=== PATIENT | female | born 1955 | race Caucasian/White ===

== ENCOUNTER 2020-10-12 16:47 | Emergency (ER) | payer MEDICAID, SELFPAY ==
[~2020-10-12] VITALS: Ht 170.2 cm; Wt 90.7 kg
[2020-10-12 17:53] VITALS: BP_SYST 157
[2020-10-12] MEDS ORDERED: NS 1000 ML IV.SOLN IV ONE (18:00)
[2020-10-12] MEDS ORDERED: cefTRIAXone 1 GM IVPB PREMIX 50 ML IV ONE (18:00)
[2020-10-12 19:09] LABS: HEMOGLOBIN 14.7 g/dL (12.0-16.0); RED CELL DISTRIBUTION WIDTH 13.8 % (9.0-15.0)
[2020-10-12 19:14] LABS: BASOPHILS % (AUTO) 0.2 % (0.0-2.0); HEMATOCRIT 43.6 % (36-48); LYMPHOCYTES # (AUTO) 1.1 K/uL (1.0-5.5); LYMPHOCYTES % (AUTO) 24.4 % (20.5-51.5); MEAN CORPUSCULAR HEMOGLOBIN 31 pg (27-31); MEAN CORPUSCULAR HGB CONC 34 % (32-36); MEAN CORPUSCULAR VOLUME 92 fL (79.0-98.0); MONOCYTES # (AUTO) 0.3 K/uL (0.0-1.0); MONOCYTES % (AUTO) 7.8 % (1.7-9.3); NEUTROPHILS # (AUTO) 2.9 K/uL (1.8-7.7); NEUTROPHILS % (AUTO) 67.6 % (40.0-70.0); PLATELET COUNT (AUTO) 145 K/uL (130-430); RED BLOOD CELL COUNT(AUTO) 4.72 MIL/uL (4.2-6.2); WHITE BLOOD COUNT (AUTO) 4.3 K/uL (4.8-10.8)
[2020-10-12 19:19] LABS: CALCIUM 9.8 mg/dL (8.4-11.0); CREATININE 0.84 mg/dL (0.55-1.30); POTASSIUM 3.8 mmol/L (3.5-5.1)
[2020-10-12 19:25] LABS: ALBUMIN 3.7 g/dL (3.4-4.8); TOTAL BILIRUBIN 0.4 mg/dL (0.0-1.0)
--- NOTE | 2020-10-12 19:41 | NUR ---
Patient's family called for update patient status.
--- NOTE | 2020-10-12 19:43 | NUR ---
Received report from Lab - COVID + -, Dr. Limon notified.
[2020-10-12] MEDS ORDERED: AZITHROMYCIN 250 MG TABLET PO ONE (19:45)
--- NOTE | 2020-10-12 19:50 | NUR ---
Patient BIB by BLS/EMS. C/O headache x today. Per reported, patient had headache and exposed someone who Covid positive. A/O,X4, denies shortness of breath, headache.
--- NOTE | 2020-10-12 19:51 | NUR ---
Given PO medication as order.
[2020-10-12 19:52] VITALS: BP_SYST 157
--- NOTE | 2020-10-12 19:52 | NUR ---
Patient given written and verbal discharge instructions and verbalizes understanding. ER MD discussed with patient the results and treatment provided. Patient in stable condition. ID arm band removed. Rx of Azithromycin given. Patient educated on pain management and to follow up with PMD. Pain Scale 3/10. Opportunity for questions provided and answered. Medication side effect fact sheet provided.
--- NOTE | 2020-10-12 20:01 | NUR ---
Patient transferred to the tent to wait for family for a ride.
== END 2020-10-12 20:01 | disposition home or self-care (01) ==
LOC: SED 16:47
DX: U07.1 COVID-19 (principal); R11.2 Nausea with vomiting, unspecified; R19.7 Diarrhea, unspecified; I10 Essential (primary) hypertension; E11.9 Type 2 diabetes mellitus without complications; Z85.9 Personal history of malignant neoplasm, unspecified
CPT/HCPCS: 36415; 71045; 80053; 83605; 85025; 87426; 93005; 99285; Q0144